=== PATIENT | female | born 1945 | race Two or more races ===

== ENCOUNTER 2019-11-28 23:30 | Emergency (ER) | payer OTHER ==
[~2019-11-28] VITALS: Ht 154.9 cm; Wt 65.8 kg
[2019-11-28] MEDS ORDERED: PANTOPRAZOLE SO40 MG PO (23:44)
[2019-11-28] MEDS ORDERED: HYOSCYAMINE0.125 M1 SL (23:44)
[2019-11-28] MEDS ORDERED: ROSUVASTATIN CA10 MG PO (23:44)
[2019-11-28] MEDS ORDERED: [UNRECOGNIZED DRUG - OTHER] (23:44)
[2019-11-28] MEDS ORDERED: SYNTHROID75 MCG PO (23:45)
== END 2019-11-29 03:29 | disposition home or self-care (01) ==
LOC: ER 23:30
DX: K80.20 Calculus of gallbladder without cholecystitis without obstruction (principal); Z20.828 Contact with and (suspected) exposure to other viral communicable diseases